=== PATIENT | female | born 1975 | race African-American/Black ===

== ENCOUNTER 2016-08-27 16:53 | Emergency (ER) | payer OTHER ==
[~2016-08-27] VITALS: Ht 152.4 cm; Wt 72.1 kg
[~2016-08-27 16:53] MED LIST: TRAM-29 PO
[2016-08-27 18:13] VITALS: BP 162/109
[2016-08-27 19:04] LABS: BILIRUBIN,URINE NEGATIVE (NEG); GLUCOSE,URINE NEGATIVE (NEG); NITRITE,URINE NEGATIVE (NEG); PH,URINE 6.5; PROTEIN,URINE NEGATIVE (NEG-TRACE); UROBILINOGEN,URINE 0.2 mg/dL (0.2 mg/dL)
[2016-08-27 19:11] LABS: BACTERIA,URINE FEW /HPF (0-FEW); RBC,URINE OCC /HPF (0-2); SQUAMOUS EPITHELIAL CELL,UR FEW /LPF; WBC,URINE OCC /HPF (0-4)
[2016-08-27 19:25] LABS: OBC FLU VALID
--- NOTE | 2016-08-27 19:59 | PHYS DOC ---
Past Medical History Past Medical History: No Pertinent History Past Surgical History: Other Additional Past Surgical Histo: "COSMETIC" Alcohol Use: Occasionally Drug Use: None Adult General Chief Complaint Chief Complaint: SEXUALLY TRANSMITTED DISEASE HPI HPI Patient is a 40 year old female who presents with a foul odor vaginal discharge for 3 weeks. Patient states 3 weeks ago she had unprotected sex because the condom broke. Patient would like to be tested and treated. She is also complaining of running nose and congestion for 2 days. She is concerned she could've the flu. Review of Systems Review of Systems Constitutional: Denies fever or chills [] Eyes: Denies change in visual acuity, redness, or eye pain [] HENT: Nasal congestion Respiratory: Denies cough or shortness of breath [] Cardiovascular: No additional information not addressed in HPI [] GI: Denies abdominal pain, nausea, vomiting, bloody stools or diarrhea [] : Vaginal discharge Musculoskeletal: Denies back pain or joint pain [] Integument: Denies rash or skin lesions [] Neurologic: Denies headache, focal weakness or sensory changes [] Endocrine: Denies polyuria or polydipsia [] Current Medications Current Medications Current Medications Medications (Trade) Dose Ordered Sig/Whitney Start Time Stop Time Status Last Admin Dose Admin Azithromycin (Zithromax) 1,000 mg 1X ONCE 08/27/16 20:00 08/27/16 20:01 Ceftriaxone Sodium (Rocephin Im) 250 mg 1X ONCE 08/27/16 20:00 08/27/16 20:01 Metronidazole (Flagyl) 2,000 mg 1X ONCE 08/27/16 20:00 08/27/16 20:01 Allergies Allergies Allergies Coded Allergies Type Severity Reaction Last Updated Verified No Known Drug Allergies 02/05/16 No Physical Exam Physical Exam Constitutional: Well developed, well nourished, no acute distress, non-toxic appearance. [] HENT: Normocephalic, atraumatic, bilateral external ears normal, oropharynx moist, no oral exudates, nose normal. [] Eyes: PERRLA, EOMI, conjunctiva normal, no discharge. [] Neck: Normal range of motion, no tenderness, supple, no stridor. [] Cardiovascular:Heart rate regular rhythm, no murmur [] Lungs & Thorax: Bilateral breath sounds clear to auscultation [] Abdomen: Bowel sounds normal, soft, no tenderness, no masses, no pulsatile masses. [] Pelvic exam External pelvic = normal, cervix is closed, no CMT, small amount of white vaginal discharge in the vaginal vault, no adnexal tenderness. Skin: Warm, dry, no erythema, no rash. [] Back: No tenderness, no CVA tenderness. [] Extremities: No tenderness, no cyanosis, no clubbing, ROM intact, no edema. [] Neurologic: Alert and oriented X 3, normal motor function, normal sensory function, no focal deficits noted. [] Psychologic: Affect normal, judgement normal, mood normal. [] Current Patient Data Vital Signs Vital Signs Date Time Temp Pulse Resp B/P Pulse Ox O2 Delivery O2 Flow Rate FiO2 08/27/16 18:13 98.5 100 18 97 Room Air 98.5 Lab Values Laboratory Tests Test 08/27/16 18:50 08/27/16 18:55 Urine Collection Type Unknown Urine Color Yellow Urine Clarity Clear Urine pH 6.5 Urine Specific [place] 1.015 Urine Protein Negativemg/dL (NEG-TRACE) Urine Glucose (UA) Negativemg/dL (NEG) Urine Ketones (Stick) Negativemg/dL (NEG) Urine Blood Negative (NEG) Urine Nitrite Negative (NEG) Urine Bilirubin Negative (NEG) Urine Urobilinogen Dipstick 0.2mg/dL (0.2 mg/dL) Urine Leukocyte Esterase Negative (NEG) Urine RBC Occ/HPF (0-2) Urine WBC Occ/HPF (0-4) Urine Squamous Epithelial Cells Few/LPF Urine Amorphous Sediment Present/HPF Urine Bacteria Few/HPF (0-FEW) Urine Mucus Slight/LPF POC Urine HCG, Qualitative hcg negative (Negative) Influenza Type A Antigen Positive (NEGATIVE) Influenza Type B Antigen Negative (NEGATIVE) Microbiology 08/27/16 Wet Prep - Final, Complete EKG EKG [] Radiology/Procedures Radiology/Procedures [] Course & Med Decision Making Course & Med Decision Making Pertinent Labs and Imaging studies reviewed. (See chart for details) Patient is in the ED with vaginal discharge and is concerned about STDs. Wet prep positive for BV. She was discharged with Flagyl, she was treated prophylaxis for STD with Rocephin and azithromycin and Flagyl. She was also concerned about the flu. She has had upper respiratory symptoms for 2 days. She tested positive for flu a. She has been sick for 2 days, discharged with Tamiflu. Urine analysis is negative for infection. Patient was indicated on safe sex practices especially the need to use protection. Follow-up with her own doctor in one week. Reinaldo Disclaimer Reinaldo Disclaimer This electronic medical record was generated, in whole or in part, using a voice recognition dictation system. Departure Departure Impression: Primary Impression: Concern about STD in female without diagnosis Additional Impressions: Bacterial vaginosis Influenza Disposition: HOME, SELF-CARE Condition: STABLE Referrals: PARISH VELEZ MD (PCP) Follow-up with your own doctor in one week Patient Instructions: Bacterial Vaginosis, Upper Respiratory Infection, Adult Additional Instructions: You tested positive for influenza A, this is a viral illness. Take Tamiflu as prescribed. Take Tylenol every 4 hours and Motrin every 6 hours, push fluids and maintain good hand hygiene. You also tested positive for bacterial vaginosis which could be the source of your vaginal discharge. We sent you home with Flagyl. Ensure you complete it. You also were treated prophylaxis for STDs. Contact all your partners let them know you treated for STDs and ask them to seek treatment too. Continue using protection all the time. Scripts Oseltamivir Phosphate (Tamiflu)75 Mg Capsule1 Cap PO BID #10 CAP Prov:DEVAN DUNCAN APRN 08/27/16 Metronidazole (Flagyl)500 Mg Tablet1 Tab PO BID #10 TAB Prov:DEVAN DUNCAN APRN 08/27/16 Problem Qualifiers DEVAN DUNCAN APRN Aug 27, 2016 19:59
[2016-08-27] MEDS ORDERED: AZITHROMYCIN 250 MG TABLET PO ONE (20:00)
[2016-08-27] MEDS ORDERED: CEFTRIAXONE IM 250 MG VIAL. IM ONE (20:00)
[2016-08-27] MEDS ORDERED: METRONIDAZOLE 500 MG TABLET. PO ONE (20:00)
[2016-08-27] MEDS ORDERED: METR500T PO (20:01)
[2016-08-27] MEDS ORDERED: OSEL75CA PO (20:01)
--- NOTE | 2016-08-28 07:18 | VNOTE ---
CALL BACK NOTE CALL BACK Microbiology 08/27/16 Wet Prep - Final, Complete Patients vaginal cultures positive for BV patient was treated with Flagyl at discharge by the provider. No change needed to the treatment regimen. SONAL GOLDMAN NP Aug 28, 2016 07:18
[2016-08-28 08:27] LABS: NEGATIVE OBC STREP NEG; POSITIVE OBC STREP POS
== END 2016-08-27 20:46 | disposition home or self-care (01) ==
LOC: ER 17:01
DX: N76.0 Acute vaginitis (principal); B96.89 Other specified bacterial agents as the cause of diseases classified elsewhere; J11.1 Influenza due to unidentified influenza virus with other respiratory manifestations; Z11.3 Encounter for screening for infections with a predominantly sexual mode of transmission
CPT/HCPCS: 36415; 81001; 81025; 87070; 87491; 87591; 87804; 87880; 96372; 99284; J0696; Q0111; Q0144

== ENCOUNTER 2016-10-15 22:08 | Emergency (ER) | payer OTHER ==
[~2016-10-15 22:08] MED LIST changes: +METR500T PO; +OSEL75CA PO
[2016-10-15 22:22] VITALS: BP 170/119
[2016-10-15] MEDS ORDERED: ONDA4TAB10 SL (23:00)
[2016-10-15] MEDS ORDERED: ACET325T9 PO (23:00)
--- NOTE | 2016-10-15 23:01 | PHYS DOC ---
Past Medical History Past Medical History: No Pertinent History Past Surgical History: Other Additional Past Surgical Histo: "COSMETIC" Alcohol Use: Occasionally Drug Use: None Adult General Chief Complaint Chief Complaint: FLU SYMPTOM HPI HPI 41-year-old female presenting to the emergency department today with headache fever cough rhinorrhea sore throat and muscle aches over the past 3 weeks. Onset 3 weeks. Location generalized. Duration intermittent. No alleviating factors present. She also complains of right ear pain. Review of systems is negative for chest pain shortness of breath nausea vomiting. She does report when she coughs sometimes she has a gagging sensation. Otherwise she denies shortness of breath or oliguria. All other review of systems is negative unless otherwise noted in history of present illness. Review of Systems Review of Systems SEE ABOVE. Allergies Allergies Allergies Coded Allergies Type Severity Reaction Last Updated Verified No Known Drug Allergies 02/05/16 No Physical Exam Physical Exam Constitutional: Well developed, well nourished, no acute distress, non-toxic appearance. HENT: Normocephalic, atraumatic, bilateral external ears normal, oropharynx moist, no oral exudates, nose normal. [] The patient's right and left tympanic membrane are normal without any erythema. Normal light reflex present. No evidence of otitis externa. Eyes: PERRLA, EOMI, conjunctiva normal, no discharge. Neck: Normal range of motion, no tenderness, supple, no stridor. [] Cardiovascular:Heart rate regular rhythm, no murmur Lungs & Thorax: Bilateral breath sounds clear to auscultation [] Abdomen: Bowel sounds normal, soft, no tenderness, no masses, no pulsatile masses. [] Skin: Warm, dry, no erythema, no rash. Back: No tenderness, no CVA tenderness. Extremities: No tenderness, no cyanosis, no clubbing, ROM intact, no edema. [] Neurologic: Alert and oriented X 3, normal motor function, normal sensory function, no focal deficits noted. [] Psychologic: Affect normal, judgement normal, mood normal. [] Current Patient Data Vital Signs Vital Signs Date Time Temp Pulse Resp B/P Pulse Ox O2 Delivery O2 Flow Rate FiO2 10/15/16 22:22 97.9 86 20 100 Room Air 97.9 EKG EKG [] Radiology/Procedures Radiology/Procedures [] Course & Med Decision Making Course & Med Decision Making Pertinent Labs and Imaging studies reviewed. (See chart for details) [] 41-year-old female presenting with signs and symptoms suggestive of influenza virus. She also complained of right ear pain however her here exam was completely unremarkable. She had hypertension in the emergency department for which I recommended she follow up with her doctor. No evidence of end organ damage. No crackles on pulmonary auscultation. No oliguria. Dragon Disclaimer Dragon Disclaimer This electronic medical record was generated, in whole or in part, using a voice recognition dictation system. Departure Departure Impression: Primary Impression: Influenza Disposition: HOME, SELF-CARE Condition: STABLE Referrals: PARISH VELEZ MD (PCP) Patient Instructions: Cough, Adult, Hypertension Additional Instructions: Thank you for allowing us to participate in your care today. Followup with your primary care physician in 3 days if your symptoms do not improve. If you do not have a primary care provider you can ask for a list of our primary care providers. Return to the emergency department you have any new or concerning findings. This should be evaluated by the primary care physician and any necessary consulting services for continued management within a few days after discharge. Return to emergency room if you have any new or concerning symptoms including but not limited to fever, chills, nausea, vomiting, intractable pain, any new rashes, chest pain, shortness of air, uncontrolled bleeding, difficulty breathing, and/or vision loss. Scripts Ondansetron (Zofran Odt)4 Mg Tab.rapdis1 Tab SL PRN Q8HRS PRN NAUSEA #4 TAB Prov:TAMERA ALVARADO MD 10/15/16 Acetaminophen (Tylenol)325 Mg [id number] Mg PO PRN Q8HRS PRN PAIN #20 Prov:TAMERA ALVARADO MD 10/15/16 TAEMRA ALVARADO MD Oct 15, 2016 23:01
== END 2016-10-15 23:07 | disposition home or self-care (01) ==
LOC: ER 22:08
DX: J11.1 Influenza due to unidentified influenza virus with other respiratory manifestations (principal); H92.01 Otalgia, right ear; M79.1 Myalgia
CPT/HCPCS: 99283

== ENCOUNTER → 2016-10-16 | Outpatient (CLI) | payer OTHER ==
[2016-10-15 22:22] VITALS: BP 170/119
[~2016-10-16] MED LIST changes: +ACET325T9 PO; +ONDA4TAB10 SL
--- NOTE | 2016-10-16 13:20 | RAD ---
EXAM: Abdomen sonogram. HISTORY: Right upper quadrant pain. TECHNIQUE: Sonographic imaging of the abdomen was performed. COMPARISON: None. FINDINGS: The liver is normal in size. There is hepatic steatosis. No focal hepatic lesion is seen. The gallbladder neck is prominent in caliber. There is a positive sonographic Jain's sign. The right kidney, pancreas and inferior vena cava are unremarkable. The common bile duct is normal in caliber. IMPRESSION: 1. Hepatic steatosis. 2. Prominent gallbladder neck caliber. There is no gallbladder distention, gallbladder wall thickening or pericholecystic fluid suggest cholecystitis were correspond with a positive sonographic Jain's sign.
== END | disposition home or self-care (01) ==
LOC: US 11:10
PROVIDERS: ATTEND Nurse Practitioner Family
DX: R10.11 Right upper quadrant pain (principal); K21.9 Gastro-esophageal reflux disease without esophagitis; K76.0 Fatty (change of) liver, not elsewhere classified
CPT/HCPCS: 76705

== ENCOUNTER 2016-11-26 12:22 | Emergency (ER) | payer OTHER ==
[~2016-11-26] VITALS: Ht 154.9 cm; Wt 700.8 kg
[2016-11-26 13:05] VITALS: BP 147/109
[2016-11-26] MEDS ORDERED: HYDR25TA PO (13:40)
[2016-11-26] MEDS ORDERED: FAMO-63 PO (13:40)
[2016-11-26] MEDS ORDERED: ACYC800T PO (13:40)
[2016-11-26] MEDS ORDERED: PRED50TA PO (13:40)
--- NOTE | 2016-11-26 13:41 | PHYS DOC ---
Past Medical History Past Medical History: Hypertension Past Surgical History: Other Additional Past Surgical Histo: "COSMETIC" Alcohol Use: Occasionally Drug Use: None Adult General Chief Complaint Chief Complaint: INSECT BITE HPI HPI Patient is a 41 year old female who presents today with a pruritic rash that began a couple days ago while vacationing in [facility]. Review of Systems Review of Systems Constitutional: Denies fever or chills [] Eyes: Denies change in visual acuity, redness, or eye pain [] HENT: Denies nasal congestion or sore throat [] Musculoskeletal: Denies back pain or joint pain [] Integument: rash Neurologic: Denies headache, focal weakness or sensory changes [] Endocrine: Denies polyuria or polydipsia [] Allergies Allergies Allergies Coded Allergies Type Severity Reaction Last Updated Verified No Known Drug Allergies 02/05/16 No Physical Exam Physical Exam Constitutional: Well developed, well nourished, no acute distress, non-toxic appearance. [] HENT: Normocephalic, atraumatic, bilateral external ears normal, oropharynx moist, no oral exudates, nose normal. [] Eyes: PERRLA, EOMI, conjunctiva normal, no discharge. [] Skin: Patient has scattered areas of blisters on her hands. She has some erythematous papular rash on her back. Back: No tenderness, no CVA tenderness. [] Extremities: No tenderness, no cyanosis, no clubbing, ROM intact, no edema. [] Neurologic: Alert and oriented X 3, normal motor function, normal sensory function, no focal deficits noted. [] Psychologic: Affect normal, judgement normal, mood normal. [] Current Patient Data Vital Signs Vital Signs Date Time Temp Pulse Resp B/P (MAP) Pulse Ox O2 Delivery O2 Flow Rate FiO2 11/26/16 13:05 97.8 91 18 98 Room Air 97.8 EKG EKG [] Radiology/Procedures Radiology/Procedures [] Course & Med Decision Making Course & Med Decision Making Pertinent Labs and Imaging studies reviewed. (See chart for details) Patient has rashes suspicious of contact dermatitis as well as shingles. We put on acyclovir. We also put her on prednisone, pepcid, Atarax and triamcinolone cream. Provided a blanchard grinder operator for follow-up in 2 weeks. Dragon Disclaimer Dragon Disclaimer This electronic medical record was generated, in whole or in part, using a voice recognition dictation system. Departure Departure Impression: Primary Impression: Contact dermatitis Additional Impression: Shingles Disposition: 01 HOME, SELF-CARE Condition: STABLE Referrals: PARISH VELEZ MD (PCP) SOL URENA MD Follow-up with the provided blanchard grinder operator in 2 weeks if rash present Patient Instructions: Contact Dermatitis, [id number], Shingles Additional Instructions: You have a rash throughout her body. Some of the rashes are blister suspicious of a viral rash called shingles while other are contact dermatitis which comes from exposure to something your skin reacted to. We put you on several medications to help with the symptoms. We provided you a blanchard grinder operator to follow -up with in the next14 days if symptoms persist. Scripts Hydroxyzine Hcl (HYDROXYZINE HCL) 25 Mg Tablet 1 TAB PO TID Y for RASH, #30 TAB 1 Refill Prov: DEVAN DUNCAN APRN 11/26/16 Famotidine (PEPCID) 20 Mg Tablet 20 MG PO DAILY, #7 TAB Prov: DEVAN DUNCAN APRN 11/26/16 Prednisone (PREDNISONE) 50 Mg Tablet 1 TAB PO DAILY, #5 TAB Prov: DEVAN DUNCAN APRN 17 Acyclovir (ACYCLOVIR) 800 Mg Tablet 1 TAB PO 5XDAY, #50 TAB Prov: DEVAN DUNCAN APRN 11/26/16 Problem Qualifiers Primary Impression: Contact dermatitis Contact dermatitis type: unspecified Contact dermatitis trigger: unspecified trigger Qualified Codes: L25.9 - Unspecified contact dermatitis, unspecified cause Additional Impression: Shingles Herpes zoster complications: without complications Qualified Codes: B02.9 - Zoster without complications DEVAN DUNCAN APRN November 26, 2016 13:41
== END 2016-11-26 13:50 | disposition home or self-care (01) ==
LOC: ER 12:22
DX: L25.9 Unspecified contact dermatitis, unspecified cause (principal); B02.9 Zoster without complications; I10 Essential (primary) hypertension
CPT/HCPCS: 99283

== ENCOUNTER 2017-03-23 12:04 | Emergency (ER) | payer OTHER ==
[~2017-03-23] VITALS: Ht 154.9 cm; Wt 71.2 kg
[~2017-03-23 12:04] MED LIST changes: +ACYC800T PO; +FAMO-63 PO; +HYDR25TA PO; +PRED50TA PO; -TRAM-29 PO; +TRAM-48 PO
[2017-03-23 12:52] VITALS: BP 152/98
[2017-03-23] MEDS ORDERED: TRIA15CR3 TP (13:09)
[2017-03-23] MEDS ORDERED: CETI10TA22 PO (13:09)
[2017-03-23] MEDS ORDERED: PRED50TA PO (13:09)
--- NOTE | 2017-03-23 13:10 | PHYS DOC ---
Past Medical History Past Medical History: Hypertension Past Surgical History: Other Additional Past Surgical Histo: "COSMETIC" Alcohol Use: Occasionally Drug Use: None Adult General Chief Complaint Chief Complaint: INSECT BITE HPI HPI Patient is a 41 year old female with history of hypertension who presents with multiple insect bites that she noted yesterday. Patient does not know what bit her. Review of Systems Review of Systems Constitutional: Denies fever or chills [] Eyes: Denies change in visual acuity, redness, or eye pain [] HENT: Denies nasal congestion or sore throat [] Respiratory: Denies cough or shortness of breath [] Cardiovascular: No additional information not addressed in HPI [] GI: Denies abdominal pain, nausea, vomiting, bloody stools or diarrhea [] : Denies dysuria or hematuria [] Musculoskeletal: Denies back pain or joint pain [] Integument: insect bites Neurologic: Denies headache, focal weakness or sensory changes [] ia or polydipsia [] Current Medications Current Medications Current Medications Medications (Trade) Dose Ordered Sig/Whitney Start Time Stop Time Status Last Admin Dose Admin Diphtheria/ Tetanus/Acell Pertussis (Boostrix) 0.5 ml ONCE ONCE 03/23/17 13:15 03/23/17 13:16 UNV Allergies Allergies Allergies Coded Allergies Type Severity Reaction Last Updated Verified No Known Drug Allergies 02/05/16 No Physical Exam Physical Exam Constitutional: Well developed, well nourished, no acute distress, non-toxic appearance. [] HENT: Normocephalic, atraumatic, bilateral external ears normal, oropharynx moist, no oral exudates, nose normal. [] Eyes: PERRLA, EOMI, conjunctiva normal, no discharge. [] Neck: Normal range of motion, no tenderness, supple, no stridor. [] Cardiovascular:Heart rate regular rhythm, no murmur [] Lungs & Thorax: Bilateral breath sounds clear to auscultation [] Abdomen: Bowel sounds normal, soft, no tenderness, no masses, no pulsatile masses. [] Skin: Patient has multiple sites of erythematous blisters suspicious of mosquito bites. They include on bilateral forearms, bilateral knees, right foot , left thigh. Back: No tenderness, no CVA tenderness. [] Extremities: No tenderness, no cyanosis, no clubbing, ROM intact, no edema. [] Neurologic: Alert and oriented X 3, normal motor function, normal sensory function, no focal deficits noted. [] Psychologic: Affect normal, judgement normal, mood normal. [] Current Patient Data Vital Signs Vital Signs Date Time Temp Pulse Resp B/P (MAP) Pulse Ox O2 Delivery O2 Flow Rate FiO2 03/23/17 12:52 98.2 91 18 100 Room Air 98.2 EKG EKG [] Radiology/Procedures Radiology/Procedures [] Course & Med Decision Making Course & Med Decision Making Pertinent Labs and Imaging studies reviewed. (See chart for details) Patient has multiple insect bites suspicious of mosquito bites. She was given tetanus in the ED. She was discharged with triamcinolone cream Benadryl and prednisone. Follow-up with her doctor in 1-2 weeks. Dragon Disclaimer Dragon Disclaimer This electronic medical record was generated, in whole or in part, using a voice recognition dictation system. Departure Departure Impression: Primary Impression: Insect bite Disposition: HOME, SELF-CARE Condition: STABLE Referrals: PARISH VELEZ MD (PCP) please follow up with your doctor in 2 weeks Patient Instructions: Insect Bite, [id number] Additional Instructions: You were seen with insect bites suspicious of mosquitoes bites. They do not look infected. Use the prescribed medicines as ordered you can also apply Neosporin to the areas twice a day. Follow-up with your doctor in 1-2 weeks. Keep the area very clean. Scripts Cetirizine Hcl (ZYRTEC) 10 Mg Tablet 1 TAB PO DAILY, #30 TAB 2 Refills Prov: DEVAN DUNCAN APRN 03/23/17 Prednisone (PREDNISONE) 50 Mg Tablet 1 TAB PO DAILY, #5 TAB Prov: DEVAN DUNCAN APRN 03/23/17 Triamcinolone Acetonide (TRIAMCINOLONE ACETONIDE 0.1% CREAM) 15 Gm Cream..g. 1 CELESTE TP BID, #1 TUBE Prov: DEVAN DUNCAN APRN 03/23/17 Problem Qualifiers Primary Impression: Insect bite Encounter type: initial encounter Qualified Codes: W57.XXXA - Bitten or stung by nonvenomous insect and other nonvenomous arthropods, initial encounter DEVAN DUNCAN APRN Mar 23, 2017 13:09
[2017-03-23] MEDS ORDERED: DIPHTH,PERTUSS(ACELL),TET TOX 0.5 ML DISP.SYRIN. VAX IM ONE (13:15)
== END 2017-03-23 13:30 | disposition home or self-care (01) ==
LOC: ER 12:04
DX: S50.862A Insect bite (nonvenomous) of left forearm, initial encounter (principal); S50.861A Insect bite (nonvenomous) of right forearm, initial encounter; S90.861A Insect bite (nonvenomous), right foot, initial encounter; S80.262A Insect bite (nonvenomous), left knee, initial encounter; S80.261A Insect bite (nonvenomous), right knee, initial encounter; S70.362A Insect bite (nonvenomous), left thigh, initial encounter; I10 Essential (primary) hypertension; W57.XXXA Bitten or stung by nonvenomous insect and other nonvenomous arthropods, initial encounter; Y93.89 Activity, other specified; Y99.8 Other external cause status; Y92.89 Other specified places as the place of occurrence of the external cause
CPT/HCPCS: 90471; 90715; 99283-25

== ENCOUNTER 2017-08-30 08:11 | Emergency (ER) | payer SELFPAY, OTHER ==
[2017-08-30 08:33] LABS: URINE HCG POC HCG NEGATIVE (Negative)
[2017-08-30] MEDS: ONDANSETRON PF 4 MG/2 ML VIAL. IV ×2 (08:42)
[2017-08-30] MEDS: IV NORMAL SALINE 1000ML BAG 1,000 ML IV ×2 (08:42)
[2017-08-30 08:45] LABS: BILIRUBIN,URINE NEGATIVE (NEG); CLARITY,URINE CLOUDY; COLOR,URINE YELLOW; GLUCOSE,URINE NEGATIVE (NEG); NITRITE,URINE NEGATIVE (NEG); PROTEIN,URINE 30 mg/dL (NEG-TRACE); UROBILINOGEN,URINE 0.2 mg/dL (0.2 mg/dL)
[2017-08-30 08:48] LABS: ADD MAN DIFF? NO
[2017-08-30 08:56] LABS: BACTERIA,URINE FEW /HPF (0-FEW); BASO % 1 % (0-3); EOS # 0.1 x10^3/uL (0.0-0.7); EOS % 3 % (0-3); HEMATOCRIT 40.7 % (36.0-47.0); HEMOGLOBIN 13.1 g/dL (12.0-15.5); LYMPH # 1.3 x10^3/uL (1.0-4.8); LYMPH % 32 % (24-48); MEAN CORPUSCULAR HEMOGLOBIN 25 pg (25-35); MEAN CORPUSCULAR HGB CONC 32 g/dL (31-37); MEAN CORPUSCULAR VOLUME 76 fL (79-100); MONO # 0.4 x10^3/uL (0.0-1.1); MONO % 10 % (0-9); NEUT # 2.2 x10^3uL (1.8-7.7); NEUT % 54 % (31-73); PLATELET COUNT 329 x10^3/uL (140-400); RBC,URINE OCC /HPF (0-2); RED BLOOD COUNT 5.36 x10^6/uL (3.50-5.40); RED CELL DISTRIBUTION WIDTH 15.2 % (11.5-14.5); SQUAMOUS EPITHELIAL CELL,UR MOD /LPF; WBC,URINE OCC /HPF (0-4); WHITE BLOOD COUNT 4.1 x10^3/uL (4.0-11.0)
[2017-08-30 08:58] LABS: ANION GAP 13 (6-14); BLOOD UREA NITROGEN 9 mg/dL (7-20); BUN/CREATININE RATIO 10 (6-20); CALCIUM 9.5 mg/dL (8.5-10.1); CARBON DIOXIDE 25 mmol/L (21-32); CHLORIDE 101 mmol/L (98-107); CREATININE 0.9 mg/dL (0.6-1.0); GFR 84.3; GLUCOSE 106 mg/dL (70-99); POTASSIUM 3.8 mmol/L (3.5-5.1); SODIUM 139 mmol/L (136-145)
[2017-08-30 09:04] LABS: ALBUMIN 3.6 g/dL (3.4-5.0); ALBUMIN/GLOBULIN RATIO 0.8 (1.0-1.7); ALK PHOS 80 U/L (46-116); ALT (SGPT) 22 U/L (14-59); AST (SGOT) 31 U/L (15-37); TOTAL BILIRUBIN 0.2 mg/dL (0.2-1.0)
[2017-08-30 09:11] LABS: INFLUENZA A PATIENT NEGATIVE (NEGATIVE); INFLUENZA B PATIENT NEGATIVE (NEGATIVE); OBC FLU VALID
[2017-08-30] MEDS: cloNIDine HCL 0.1 MG TABLET PO ×2 (11:11)
== END 2017-08-30 12:40 | disposition home or self-care (01) ==
LOC: ER 08:11
DX: A08.4 Viral intestinal infection, unspecified (principal); I10 Essential (primary) hypertension; K21.9 Gastro-esophageal reflux disease without esophagitis; Z88.0 Allergy status to penicillin
CPT/HCPCS: 36415; 80053; 81001; 81025; 85025; 87086; 87804; 87804-59; 96361; 96374; 99284-25; J2405; J7030

== ENCOUNTER → 2018-02-15 | Outpatient (CLI) | payer OTHER | END | disposition home or self-care (01) | LOC: US 08:24 | DX: N88.8 Other specified noninflammatory disorders of cervix uteri (principal); I10 Essential (primary) hypertension; K21.9 Gastro-esophageal reflux disease without esophagitis; R92.8 Other abnormal and inconclusive findings on diagnostic imaging of breast; Z87.891 Personal history of nicotine dependence | CPT/HCPCS: 76641; 76830; 76856; 77066 ==

== ENCOUNTER 2018-05-11 18:41 | Emergency (ER) | payer OTHER ==
[~2018-05-11] VITALS: Ht 152.4 cm; Wt 77.1 kg
[~2018-05-11 18:41] MED LIST changes: +CETI10TA22 PO; +TRIA15CR3 TP
[2018-05-11 19:26] VITALS: BP 134/83
--- NOTE | 2018-05-11 19:56 | PHYS DOC ---
Past Medical History Past Medical History: No Pertinent History Past Surgical History: Other Additional Past Surgical Histo: BREAST AUGMENTATION Alcohol Use: Occasionally Drug Use: None Adult General Chief Complaint Chief Complaint: ABSCESS HPI HPI Patient is a 42 year old Female who presents with 2 days of a right groin abscess that opened and drained today with foul smell purulent drainage. Patient states she's been putting Neosporin on it. Patient states she gets up and walks it hurts at a 10 out of 10. Patient states she has no known drug allergies and has not been running a fever. Patient has a history of hypertension. Review of Systems Review of Systems Constitutional: Denies fever or chills [] Eyes: Denies change in visual acuity, redness, or eye pain [] HENT: Denies nasal congestion or sore throat [] Respiratory: Denies cough or shortness of breath [] Cardiovascular: No additional information not addressed in HPI [] GI: Denies abdominal pain, nausea, vomiting, bloody stools or diarrhea [] : Denies dysuria or hematuria [] Musculoskeletal: Denies back pain or joint pain [] Integument: Right groin abscess. Denies rash or skin lesions [] Neurologic: Denies headache, focal weakness or sensory changes [] Endocrine: Denies polyuria or polydipsia [] All other systems were reviewed and found to be within normal limits, except as documented in this note. Allergies Allergies Allergies Coded Allergies Type Severity Reaction Last Updated Verified No Known Medication Allergies Allergy Unknown 08/30/17 Yes Penicillins Adverse Reaction Unknown Nausea and Vomiting 08/30/17 Yes Physical Exam Physical Exam Constitutional: Well developed, well nourished, no acute distress, non-toxic appearance. [] HENT: Normocephalic, atraumatic, bilateral external ears normal, oropharynx moist, no oral exudates, nose normal. [] Eyes: PERRLA, EOMI, conjunctiva normal, no discharge. [] Neck: Normal range of motion, no tenderness, supple, no stridor. [] Cardiovascular:Heart rate regular rhythm, no murmur [] Lungs & Thorax: Bilateral breath sounds clear to auscultation [] Abdomen: Bowel sounds normal, soft, no tenderness, no masses, no pulsatile masses. [] Skin: Warm, dry, right groin erythema, open and draining, no rash. [] Back: No tenderness, no CVA tenderness. [] Extremities: No tenderness, no cyanosis, no clubbing, ROM intact, no edema. [] Neurologic: Alert and oriented X 3, normal motor function, normal sensory function, no focal deficits noted. [] Psychologic: Affect normal, judgement normal, mood normal. [] Current Patient Data Vital Signs Vital Signs Date Time Temp Pulse Resp B/P (MAP) Pulse Ox O2 Delivery O2 Flow Rate FiO2 05/11/18 19:26 97.9 96 16 134/83 (100) 100 Room Air 97.9 EKG EKG [] Radiology/Procedures Radiology/Procedures [] Course & Med Decision Making Course & Med Decision Making Patient is a 42 year old Female who presents with 2 days of a right groin abscess that opened and drained today with foul smell purulent drainage. Patient states she's been putting Neosporin on it. Patient states she gets up and walks it hurts at a 10 out of 10. Patient states she has no known drug allergies and has not been running a fever. Patient has a history of hypertension. Patient has a small opened abscess with redness and swelling around the open area that is draining purulent fluid that is foul-smelling. I was able to drain more from it without having to open the wound more. Patient will be put on Bactrim antibiotic and should follow-up with her primary care provider within 48 hours or back to the ED within 48 hours for a wound check. Patient is not currently run a fever and her vital signs are normal. She is alert and oriented. Skin is pink warm and dry. Patient prescription for [place] pain medication and also. [] Dragon Disclaimer Dragon Disclaimer This electronic medical record was generated, in whole or in part, using a voice recognition dictation system. Departure Departure Impression: Primary Impression: Abscess Disposition: 01 HOME, SELF-CARE Condition: STABLE Referrals: PARISH VELEZ MD (PCP) Patient Instructions: Abscess Additional Instructions: FOLLOW UP WITH YOUR PRIMARY CARE PROVIDER WITHIN 48 HOURS OR THE ED FOR A WOUND CHECK. Scripts Hydrocodone/Apap 5-325 (NORCO 5-325 TABLET) 1 Each Tablet 1 TAB PO PRN Q6HRS PRN for PAIN, #8 TAB 0 Refills Prov: SONAL CROCKER SACK SEWER MACHINE 05/11/18 Sulfamethoxazole/Trimethoprim (BACTRIM DS TABLET) 1 Each Tablet 1 TAB PO BID, #14 TAB Prov: SONAL CROCKER APRN 05/11/18 SONAL CROCKER APRN May 11, 2018 19:56
[2018-05-11] MEDS ORDERED: SULF1TAB24 PO (20:04)
[2018-05-11] MEDS ORDERED: HYDR-971 PO (20:04)
[2018-05-11] MEDS ORDERED: MUPIROCIN 2 % TOPICAL CREAM 15GM TUBE. TP SCH (21:00)
== END 2018-05-11 20:29 | disposition home or self-care (01) ==
LOC: ER 18:41
DX: L02.214 Cutaneous abscess of groin (principal); I10 Essential (primary) hypertension; Z88.0 Allergy status to penicillin
CPT/HCPCS: 99283

== ENCOUNTER 2018-06-20 10:07 | Emergency (ER) | payer OTHER ==
[~2018-06-20] VITALS: Ht 154.9 cm; Wt 74.4 kg
[~2018-06-20 10:07] MED LIST changes: +HYDR-3164 PO; +SULF1TAB24 PO
[2018-06-20 10:53] VITALS: BP 154/94
[2018-06-20] MEDS: FLUCONAZOLE 100 MG TABLET. PO ONE (11:30)
[2018-06-20] MEDS: DEXAMETHASONE 4 MG TABLET PO ONE (11:34)
[2018-06-20 11:36] LABS: BILIRUBIN,URINE NEGATIVE (NEG); CLARITY,URINE CLEAR; COLOR,URINE AMBER; NITRITE,URINE NEGATIVE (NEG); PROTEIN,URINE 30 mg/dL (NEG-TRACE); UROBILINOGEN,URINE 0.2 mg/dL (0.2 mg/dL)
--- NOTE | 2018-06-20 11:42 | PHYS DOC ---
Past Medical History Past Medical History: No Pertinent History Past Surgical History: No Surgical History Additional Past Surgical Histo: BREAST AUGMENTATION Alcohol Use: Occasionally Drug Use: None Adult General Chief Complaint Chief Complaint: VAGINAL PROBLEM HPI HPI Patient is a 42 year old female who presents with stated was treated 3 weeks ago for an ingrown hair that was infected in the ED biotics. Patients states that since the antibiotics she had been having vaginal itching inside the vagina and outside the vagina and her groins bilaterally. Patient states she's been using Monistat which she used yesterday on the outside and the inside of the vagina. She denies any vaginal discharge or possible sexually transmitted diseases. She states that she's had some slight low abdominal cramping that comes and goes but it has not bothered her. She denies dysuria, nausea or vomiting or diarrhea. Review of Systems Review of Systems Constitutional: Denies fever or chills [] Eyes: Denies change in visual acuity, redness, or eye pain [] HENT: Denies nasal congestion or sore throat [] Respiratory: Denies cough or shortness of breath [] Cardiovascular: No additional information not addressed in HPI [] GI: Denies abdominal pain, nausea, vomiting, bloody stools or diarrhea [] : Vaginal itching. Denies dysuria or hematuria [] Musculoskeletal: Denies back pain or joint pain [] Integument: Denies rash or skin lesions [] Neurologic: Denies headache, focal weakness or sensory changes [] Endocrine: Denies polyuria or polydipsia [] All other systems were reviewed and found to be within normal limits, except as documented in this note. Current Medications Current Medications Current Medications Medications (Trade) Dose Ordered Sig/Whitney Start Time Stop Time Status Last Admin Dose Admin Dexamethasone (Decadron) 8 mg 1X ONCE 06/20/18 11:30 06/20/18 11:31 DC 06/20/18 11:34 8 MG Fluconazole (Diflucan) 100 mg 1X ONCE 06/20/18 11:30 06/20/18 11:31 DC 06/20/18 11:30 100 MG Allergies Allergies Allergies Coded Allergies Type Severity Reaction Last Updated Verified No Known Medication Allergies Allergy Unknown 08/30/17 Yes Penicillins Adverse Reaction Unknown Nausea and Vomiting 08/30/17 Yes Physical Exam Physical Exam Constitutional: Well developed, well nourished, no acute distress, non-toxic appearance. [] HENT: Normocephalic, atraumatic, bilateral external ears normal, oropharynx moist, no oral exudates, nose normal. [] Eyes: PERRLA, EOMI, conjunctiva normal, no discharge. [] Neck: Normal range of motion, no tenderness, supple, no stridor. [] Cardiovascular:Heart rate regular rhythm, no murmur [] Lungs & Thorax: Bilateral breath sounds clear to auscultation [] Abdomen: White vaginal discharge that can be either the Monistat or abnormal discharge. Bowel sounds normal, soft, no tenderness, no masses, no pulsatile masses. [] Skin: Warm, dry, no erythema, no rash. [] Back: No tenderness, no CVA tenderness. [] Extremities: No tenderness, no cyanosis, no clubbing, ROM intact, no edema. [] Neurologic: Alert and oriented X 3, normal motor function, normal sensory function, no focal deficits noted. [] Psychologic: Affect normal, judgement normal, mood normal. [] Current Patient Data Vital Signs Vital Signs Date Time Temp Pulse Resp B/P (MAP) Pulse Ox O2 Delivery O2 Flow Rate FiO2 06/20/18 10:53 98.1 106 20 154/94 (114) 100 Room Air 98.1 Lab Values Laboratory Tests Test 06/20/18 11:11 06/20/18 11:20 Urine Collection Type Unknown Urine Color Tanya Urine Clarity Clear Urine pH 6.0 Urine Specific [place] >=1.030 Urine Protein 30 mg/dL (NEG-TRACE) Urine Glucose (UA) Negative mg/dL (NEG) Urine Ketones (Stick) Trace mg/dL (NEG) Urine Blood Negative (NEG) Urine Nitrite Negative (NEG) Urine Bilirubin Negative (NEG) Urine Urobilinogen Dipstick 0.2 mg/dL (0.2 mg/dL) Urine Leukocyte Esterase Negative (NEG) Urine RBC Occ /HPF (0-2) Urine WBC 1-4 /HPF (0-4) Urine Squamous Epithelial Cells Few /LPF Urine Bacteria Few /HPF (0-FEW) Urine Mucus Slight /LPF POC Urine HCG, Qualitative Hcg negative (Negative) Microbiology 06/20/18 Wet Prep - Final, Complete EKG EKG [] Radiology/Procedures Radiology/Procedures [] Course & Med Decision Making Course & Med Decision Making Patient is a 42 year old female who presents with stated was treated 3 weeks ago for an ingrown hair that was infected in the ED biotics. Patients states that since the antibiotics she had been having vaginal itching inside the vagina and outside the vagina and her groins bilaterally. Patient states she's been using Monistat which she used yesterday on the outside and the inside of the vagina. She denies any vaginal discharge or possible sexually transmitted diseases. She states that she's had some slight low abdominal cramping that comes and goes but it has not bothered her. She denies dysuria, nausea or vomiting or diarrhea. Abdomen is soft and nontender. Pelvic exam is done and cultures are sent for STDs. Patient states she does not want to be treated for any history transmitted diseases at this time. Alert and oriented. Wet mount is negative, although this can be scewed due to the Monistat use. Urine is negative for infection. Skin is pink warm and dry. Afebrile. Ambulatory. She'll get a dose of Diflucan and dexamethasone in the ED. If itching continues she needs to follow up with her primary care doctor or her camera prototyping engineer. Pelvic Exam: Hand Funnel Coater present Abdomen: Nontender External Genitalia: Normal Skin Speculum: Normal vaginal mucosa, white cervical discharge Bimanual: No adnexal masses or tenderness, No CMT Dragon Disclaimer Dragon Disclaimer This electronic medical record was generated, in whole or in part, using a voice recognition dictation system. Departure Departure Impression: Primary Impression: Vaginal itching Disposition: 01 HOME, SELF-CARE Condition: STABLE Referrals: PARISH VELEZ MD (PCP) Patient Instructions: Yeast Infection of the Skin, [id number] Additional Instructions: Itching continues go to your primary care or your camera prototyping engineer for further workup. You be called in 48 hours if the chlamydia or gonorrhea cultures come back positive. SONAL CROCKER LABOR RELATIONS OFFICER Jun 20, 2018 11:42
[2018-06-20 11:56] LABS: BACTERIA,URINE FEW /HPF (0-FEW); RBC,URINE OCC /HPF (0-2); SQUAMOUS EPITHELIAL CELL,UR FEW /LPF
[2018-06-21 13:17] LABS: GC PROBE Negative (Negative)
== END 2018-06-20 12:35 | disposition home or self-care (01) ==
LOC: ER 10:07
DX: L29.8 Other pruritus (principal); R10.30 Lower abdominal pain, unspecified; N89.8 Other specified noninflammatory disorders of vagina; Z88.0 Allergy status to penicillin
CPT/HCPCS: 81001; 81025; 87491; 87591; 99283; J8540; Q0111; 36415

== ENCOUNTER 2019-06-29 10:19 | Emergency (ER) | payer MEDICAID, OTHER ==
[~2019-06-29] VITALS: Ht 152.4 cm; Wt 81.6 kg
[2019-06-29] MEDS ORDERED: LIDOCAINE 2% TOPICAL JELLY 5GM TUBE. TP ONE (11:30)
[2019-06-29] MEDS ORDERED: cloNIDine HCL 0.1 MG TABLET PO ONE (11:45)
[2019-06-29 11:46] LABS: BILIRUBIN,URINE NEGATIVE (NEG); COLOR,URINE YELLOW; NITRITE,URINE NEGATIVE (NEG); PROTEIN,URINE 30 mg/dL (NEG-TRACE); UROBILINOGEN,URINE 0.2 mg/dL (0.2 mg/dL)
[2019-06-29 11:49] VITALS: BP 175/119
--- NOTE | 2019-06-29 11:53 | RAD ---
Examination: PELVIS COMPLETE History: Pelvic pain Comparison/Correlation: 02/15/2018 pelvic ultrasound Findings: Transabdominal pelvic ultrasound exam was performed. Uterus measures 14.2 cm x 10 cm x 8.8 cm. Endometrial thickness is 0.64 cm. Multiple fibroids are present involving the myometrium with the largest measuring up to 6.4 cm diameter. Right ovary measures approximately 3.1 cm x 2.1 cm x 2 cm left ovary measures 5 cm x 5.4 cm x 3.9 cm. There is flow present bilaterally involving the ovaries. No pelvic free fluid. Adnexal follicle measuring 4.1 ureter is present with septations and may represent a corpus cyst. Impression: Fibroid uterus. Mild interval increase in size of the largest fibroid by approximately 1.5 cm? This may alternatively be due to differences in measuring technique. Complex left adnexal follicle which may be physiologic. Interval follow-up in 16-18 weeks to assess resolution. Consider. Electronically signed by: Keshav Guthrie MD (06/29/2019 11:49 AM) [facility]
[2019-06-29 12:05] LABS: U PREG PATIENT NEGATIVE (NEG)
[2019-06-29 12:07] LABS: CLARITY,URINE HAZY
[2019-06-29 12:09] LABS: SQUAMOUS EPITHELIAL CELL,UR MANY /LPF
[2019-06-29 12:10] LABS: BACTERIA,URINE FEW /HPF (0-FEW); RBC,URINE OCC /HPF (0-2)
--- NOTE | 2019-06-29 12:17 | PHYS DOC ---
Past Medical History Past Medical History: No Pertinent History Past Surgical History: No Surgical History Additional Past Surgical Histo: BREAST AUGMENTATION Alcohol Use: Occasionally Drug Use: None Adult General Chief Complaint Chief Complaint: PELVIC PAIN HPI HPI Patient is a 43 year old female with history of hypertension who presents to the ED today complaining of 9 out of 10 bilateral pelvic pain described as burning and itching to her ovaries and vagina, symptoms began 2 days ago. Patient states symptoms got worse after she used [id number] vagisil cream, patient denies any chance she is . Denies any concerns for STDs. Review of Systems Review of Systems Constitutional: Denies fever or chills [] Eyes: Denies change in visual acuity, redness, or eye pain [] HENT: Denies nasal congestion or sore throat [] Respiratory: Denies cough or shortness of breath [] Cardiovascular: No additional information not addressed in HPI [] GI: Reports pelvic pain and vaginal itching. Denies nausea, vomiting, bloody stools or diarrhea [] : Denies dysuria or hematuria [] Musculoskeletal: Denies back pain or joint pain [] Integument: Denies rash or skin lesions [] Neurologic: Denies headache, focal weakness or sensory changes [] All other systems were reviewed and found to be within normal limits, except as documented in this note. Current Medications Current Medications Current Medications Medications (Trade) Dose Ordered Sig/Whitney Start Time Stop Time Status Last Admin Dose Admin Clonidine HCl (Catapres) 0.1 mg 1X ONCE 06/29/19 11:45 06/29/19 11:46 DC 06/29/19 11:49 0.1 MG Lidocaine HCl (Xylocaine 2% Topical 5gm Tube) 1 paul 1X ONCE 06/29/19 11:30 06/29/19 11:31 DC 06/29/19 11:41 1 PAUL Allergies Allergies Allergies Coded Allergies Type Severity Reaction Last Updated Verified No Known Medication Allergies Allergy Unknown 08/30/17 Yes Penicillins Adverse Reaction Unknown Nausea and Vomiting 08/30/17 Yes Physical Exam Physical Exam Constitutional: Well developed, well nourished, no acute distress, non-toxic appearance. [] HENT: Normocephalic, atraumatic, bilateral external ears normal, oropharynx moist, no oral exudates, nose normal. [] Eyes: PERRLA, EOMI, conjunctiva normal, no discharge. [] Neck: Normal range of motion, no tenderness, supple, no stridor. [] Cardiovascular:Heart rate regular rhythm, no murmur [] Lungs & Thorax: Bilateral breath sounds clear to auscultation [] Abdomen: Bowel sounds normal, soft, no tenderness, no masses, no pulsatile masses. [] Pelvic exam External vagina appears very irritated. There is moderate amount of white cream in the vaginal vault as well as exterior vagina. Cervix is visualized, closed, no CMT, no adnexal tenderness. Skin: Warm, dry, no erythema, no rash. [] Back: No tenderness, no CVA tenderness. [] Extremities: No tenderness, no cyanosis, no clubbing, ROM intact, no edema. [] Neurologic: Alert and oriented X 3, normal motor function, normal sensory function, no focal deficits noted. [] Psychologic: Affect normal, judgement normal, mood normal. [] Current Patient Data Vital Signs Vital Signs Date Time Temp Pulse Resp B/P (MAP) Pulse Ox O2 Delivery O2 Flow Rate FiO2 06/29/19 11:49 102 175/119 06/29/19 10:35 98.3 18 97 Room Air 98.3 Lab Values Laboratory Tests Test 06/29/19 11:15 06/29/19 11:27 Urine Collection Type Void Urine Color Yellow Urine Clarity Hazy Urine pH 6.0 Urine Specific [place] >=1.030 Urine Protein 30 mg/dL (NEG-TRACE) Urine Glucose (UA) Negative mg/dL (NEG) Urine Ketones (Stick) Trace mg/dL (NEG) Urine Blood Negative (NEG) Urine Nitrite Negative (NEG) Urine Bilirubin Negative (NEG) Urine Urobilinogen Dipstick 0.2 mg/dL (0.2 mg/dL) Urine Leukocyte Esterase Negative (NEG) Urine RBC Occ /HPF (0-2) Urine WBC 1-4 /HPF (0-4) Urine Squamous Epithelial Cells Many /LPF Urine Bacteria Few /HPF (0-FEW) Urine Mucus Slight /LPF Urine Test Negative (NEG) Microbiology 06/29/19 Wet Prep - Final, Complete EKG EKG [] Radiology/Procedures Radiology/Procedures []PROCEDURE: PELVIS COMPLETE Examination: PELVIS COMPLETE History: Pelvic pain Comparison/Correlation: 02/15/2018 pelvic ultrasound Findings: Transabdominal pelvic ultrasound exam was performed. Uterus measures 14.2 cm x 10 cm x 8.8 cm. Endometrial thickness is 0.64 cm. Multiple fibroids are present involving the myometrium with the largest measuring up to 6.4 cm diameter. Right ovary measures approximately 3.1 cm x 2.1 cm x 2 cm left ovary measures 5 cm x 5.4 cm x 3.9 cm. There is flow present bilaterally involving the ovaries. No pelvic free fluid. Adnexal follicle measuring 4.1 ureter is present with septations and may represent a corpus cyst. Impression: Fibroid uterus. Mild interval increase in size of the largest fibroid by approximately 1.5 cm? This may alternatively be due to differences in measuring technique. Complex left adnexal follicle which may be physiologic. Interval follow-up in 16-18 weeks to assess resolution. Consider. Electronically signed by: Keshav Zhao MD (06/29/2019 11:49 AM) [facility] DICTATED and SIGNED BY: KESHAV ZHAO MD DATE: 06/29/19 1145 Course & Med Decision Making Course & Med Decision Making Pertinent Labs and Imaging studies reviewed. (See chart for details) This is a 43-year-old female patient presenting to the ED today complaining of pelvic pain and vaginal itching that began 2 days ago. Urine analysis is negative for UTI, wet prep is negative. Pelvic ultrasound noted for-fibroid uterus as well as a complex left adnexal follicle which may be physiological though interval follow-up recommended. Patient was provided instructions to follow-up with an BATCH FREEZER. Given prescription for lidocaine cream to apply on the exterior vagina. Pending STD testing the patient has no concerns for STDs. Her blood pressure was 177/117, patient has known history of hypertension, she does not remember the name of the medications she is on for high blood pressure and has not taken the medicine for what she believes is 2 days. She was given clonidine in the ED and encouraged to take her blood pressure medicines at home. She has a PCP to follow up with for hypertension. Her blood pressure will be rechecked prior to discharge. She has no headache or chest pain. Dragon Disclaimer Dragon Disclaimer This electronic medical record was generated, in whole or in part, using a voice recognition dictation system. Departure Departure Impression: Primary Impression: Vaginal itching Additional Impressions: Hypertension Fibroid, uterine Ovarian cyst Disposition: HOME, SELF-CARE Condition: STABLE Referrals: PARISH VELEZ MD (PCP) RACHAEL RUSH MD follow up in one week Patient Instructions: Hypertension, Ovarian Cyst, Uterine Fibroid, [id number] Additional Instructions: You were evaluated in the emergency room and noted to have fibroids as well as cyst on your left ovary. Please contact the provided BATCH FREEZER or your own BATCH FREEZER and follow-up. Please use the prescribed cream as needed on exterior vagina for comfort. Scripts Prednisone (PREDNISONE) 50 Mg Tablet 1 TAB PO DAILY, #5 TAB Prov: DEVAN DUNCAN APRN 06/29/19 Lidocaine/Prilocaine (LIDOCAINE-PRILOCAINE CREAM) 30 Gm Cream..g. 1 PAUL TP Q4HRS PRN for ITCHING, #30 GM 1 Refill apply to exterior vaginal area as needed Prov: DEVAN DUNCAN APRN 06/29/19 Problem Qualifiers Additional Impressions: Hypertension Hypertension type: unspecified Qualified Codes: I10 - Essential (primary) hypertension Fibroid, uterine Uterine leiomyoma location: unspecified location Qualified Codes: D25.9 - Leiomyoma of uterus, unspecified Ovarian cyst Laterality: left Qualified Codes: N83.202 - Unspecified ovarian cyst, left side DEVAN DUNCAN APRN Jun 29, 2019 12:17
[2019-06-29] MEDS ORDERED: LIDO30CR TP (12:22)
[2019-06-29] MEDS ORDERED: PRED50TA PO (12:34)
[2019-06-30 20:08] LABS: GC PROBE Negative (Negative)
== END 2019-06-29 12:49 | disposition home or self-care (01) ==
LOC: ER 10:19
DX: N76.89 Other specified inflammation of vagina and vulva (principal); D25.9 Leiomyoma of uterus, unspecified; N83.202 Unspecified ovarian cyst, left side; I10 Essential (primary) hypertension; Z98.890 Other specified postprocedural states; Z88.0 Allergy status to penicillin
CPT/HCPCS: 76856; 81001; 81025; 87491; 87591; 99285; Q0111; 36415

== ENCOUNTER → 2020-08-17 | Outpatient (CLI) | payer OTHER ==
[~2020-08-17] MED LIST changes: -ACYC800T PO; +ACYC800T88 PO; +AMLO-187 PO; -CETI10TA22 PO; +CETI10TA74 PO; +LIDO30CR2 TP; +LISI40TA6 PO
[2020-08-17 12:57] LABS: BILIRUBIN,URINE NEGATIVE (NEG); CLARITY,URINE CLEAR; COLOR,URINE YELLOW; NITRITE,URINE NEGATIVE (NEG); PROTEIN,URINE NEGATIVE (NEG-TRACE)
[2020-08-17 13:06] LABS: BASO % 1 % (0-3); EOS # 0.2 x10^3/uL (0.0-0.7); EOS % 4 % (0-3); HEMATOCRIT 31.8 % (36.0-47.0); HEMOGLOBIN 10.3 g/dL (12.0-15.5); LYMPH # 0.9 x10^3/uL (1.0-4.8); LYMPH % 18 % (24-48); MEAN CORPUSCULAR HEMOGLOBIN 26 pg (25-35); MEAN CORPUSCULAR HGB CONC 33 g/dL (31-37); MEAN CORPUSCULAR VOLUME 79 fL (79-100); MONO # 0.5 x10^3/uL (0.0-1.1); MONO % 10 % (0-9); NEUT # 3.3 x10^3/uL (1.8-7.7); NEUT % 67 % (31-73); PLATELET COUNT 310 x10^3/uL (140-400); RED BLOOD COUNT 4.04 x10^6/uL (3.50-5.40); RED CELL DISTRIBUTION WIDTH 17.5 % (11.5-14.5)
[2020-08-17 13:15] LABS: BACTERIA,URINE 0 /HPF (0-FEW); RBC,URINE 0 /HPF (0-2); TRICHOMONAS,URINE PRESENT
[2020-08-17 13:22] LABS: ALBUMIN 3.2 g/dL (3.4-5.0); ALBUMIN/GLOBULIN RATIO 0.9 (1.0-1.7); CALCIUM 8.6 mg/dL (8.5-10.1); GFR 73.6; TOTAL BILIRUBIN 0.3 mg/dL (0.2-1.0); TOTAL PROTEIN 6.9 g/dL (6.4-8.2)
--- NOTE | 2020-08-17 13:37 | EKG ---
[facility] [address] [place] [address] Test Date: 2020-08-17 Test Time: 13:33:02 Pat Name: MARCIA SCHOFIELD Department: Room: Gender: F Store Sales Manager: LAVERN Darling : 1975 Requested By: KASHMIR WRIGHT Order Number: [id number] Reading MD: Breezy Milton MD Measurements Intervals [place] Rate: 75 P: 55 OK: 132 QRS: 29 QRSD: 74 T: 45 QT: 378 QTc: 425 Interpretive Statements SINUS RHYTHM Electronically Signed On 08-20-2020 14:35:57 TELEVISION REPORTER by Breezy Milton MD
--- NOTE | 2020-08-17 16:34 | RAD ---
EXAM: CHEST 2 VIEWS. HISTORY: Preoperative risk factors, smoking history. COMPARISON: None. FINDINGS: Frontal and lateral views of the chest are obtained. A triangular opacity in the right cardiophrenic angle most likely reflects an epicardial fat pad. The re are no confluent infiltrates. There is no pneumothorax or pleural effusion. The heart is not enlar ged. IMPRESSION: 1. No confluent infiltrates. Electronically signed by: Tanya Westfall MD (08/17/2020 4:31 PM) [id number]
== END ==
LOC: SURGPAT 12:15
PROVIDERS: ATTEND Obstetrics & Gynecology
DX: Z01.812 Encounter for preprocedural laboratory examination (principal); Z20.822 Contact with and (suspected) exposure to COVID-19; I10 Essential (primary) hypertension
CPT/HCPCS: 71046; 80053; 81001; 85025; 87086; 93005; U0003

== ENCOUNTER 2020-08-22 06:08 | Inpatient (IN) | payer OTHER ==
[2020-08-22] VITALS (11 sets, daily range): BP systolic 93–126; BP diastolic 53–75
[~2020-08-22] VITALS: Ht 157.5 cm; Wt 82.6 kg
[~2020-08-22 06:08] MED LIST changes: +HYDROmorphone 2 MG/ML VIAL IVP PRN; +IV RINGERS,LACTATED 1000ML 1,000 ML IV SCH; +MORPHINE SULFATE 2 MG/ML VIAL. IVP PRN; +PROCHLORPERAZINE 10 MG/2 ML VIAL. IVP PRN; +fentaNYL PF VIAL 100 MCG/2 ML VIAL IVP PRN
[2020-08-22] MEDS ORDERED: DEXAMETHASONE SOD PHOS 4 MG/ML VIAL ONE (07:00)
[2020-08-22] MEDS ORDERED: LIDOCAINE 2% PF 5 ML VIAL. ONE (07:00)
[2020-08-22] MEDS ORDERED: PROPOFOL 10 MG/ML (20ML) VIAL. IV ONE (07:00)
[2020-08-22] MEDS ORDERED: ONDANSETRON PF 4 MG/2 ML VIAL. ONE (07:00)
[2020-08-22] MEDS ORDERED: ceFAZolin SODIUM IV Push 1 GM VIAL. IVP ONE ×2 (07:01→11:37)
[2020-08-22] MEDS ORDERED: ROCURONIUM 100 MG/10 ML VIAL. ONE (07:01)
[2020-08-22] MEDS ORDERED: SUCCINYLCHOLINE 200 MG/10 ML VIAL. ONE (07:02)
[2020-08-22] MEDS ORDERED: MIDAZOLAM HCL/PF 2 MG/2 ML VIAL. ONE (07:03)
[2020-08-22] MEDS ORDERED: fentaNYL PF VIAL 250 MCG/5 ML VIAL ONE (07:04)
[2020-08-22] MEDS ORDERED: BUPIVACAINE-EPI 0.25% 30 ML VIAL KIT. ONE ×2 (07:09→11:31)
[2020-08-22] MEDS ORDERED: ESTROGENS, CONJ VAGINAL CREAM 30GM TUBE. ONE (07:10)
[2020-08-22] MEDS ORDERED: METHYLENE BLUE 0.5% 10ml AMPULE. ONE (07:10)
[2020-08-22] MEDS ORDERED: INDIGOTINDISULFONATE SODIUM 40 MG/5 ML AMPUL. ONE (07:10)
[2020-08-22] MEDS ORDERED: FAMOTIDINE 20 MG/2 ML VIAL ONE (08:08)
[2020-08-22] MEDS ORDERED: KETAMINE HCL IN NACL, ISO-OSM 50 MG/5 ML SYRINGE ONE (08:57)
[2020-08-22] MEDS ORDERED: ALBUMIN HUMAN 5% 500 ML IV ONE (09:26)
[2020-08-22] MEDS ORDERED: KETOROLAC 30 MG/ML VIAL. ONE (10:53)
[2020-08-22] MEDS ORDERED: NEOSTIGMINE METHYLSULFATE 5 MG/5 ML SYRINGE. ONE (10:53)
[2020-08-22] MEDS ORDERED: SEVOFLURANE > 120 MINUTES. IH ONE (11:32)
[2020-08-22] MEDS ORDERED: HYDROmorphone 2 MG/ML VIAL ONE (11:32)
[2020-08-22] MEDS ORDERED: LACTULOSE 20 GM/30 ML SOLUTION. PO PRN (12:00)
[2020-08-22] MEDS ORDERED: diphenhydrAMINE HCL 25 MG CAPSULE PO PRN (12:00)
[2020-08-22] MEDS ORDERED: 0.9 % SODIUM CHLORIDE 10 ML DISP.SYRIN. IV PRN (12:00)
[2020-08-22] MEDS ORDERED: NALOXONE 0.4 MG/ML VIAL. IV PRN (12:00)
[2020-08-22] MEDS ORDERED: CALCIUM CARBONATE 500 MG TAB.CHEW PO PRN (12:00)
[2020-08-22] MEDS ORDERED: ONDANSETRON PF 4 MG/2 ML VIAL. IV PRN (12:00)
[2020-08-22] MEDS ORDERED: diphenhydrAMINE 50 MG/ML VIAL IV PRN (12:00)
[2020-08-22] MEDS ORDERED: ZOLPIDEM 5 MG TABLET. PO PRN (12:00)
[2020-08-22] MEDS ORDERED: MAG HYDROX/ALUMINUM HYD/SIMETH 30 ML ORAL.SUSP PO PRN (12:00)
[2020-08-22] MEDS ORDERED: PROCHLORPERAZINE 10 MG/2 ML VIAL. ONE (12:18)
--- NOTE | 2020-08-22 12:23 | PDOC ---
BRIEF OPERATIVE NOTE Date: Aug 22, 2020 Pre-Op Diagnosis Anemia, menorrhagia, enlarged fibroid uterus Post-Op Diagnosis same Procedure Performed diagnostic scope then BELINDA/bilateral salpingectomy Surgeon Dr. Fan Supervisor Records Change JUAN JOSE Person Anesthesiologist Dr. Cullen Anesthesia Type: General Blood Loss 750cc IV Fluid 2400cc crystlloid, 500cc albumin Urine Output 150cc clear and concentrated via rae Specimens Obtained cervix, uterus with fibroids, bilateral tubes Findings enlarged multi lobulated fibroid uterus, normal bilateral tubes and ovaries, mild adhesions to posterior cervix,normal appendix Complications none Operative Note [id number] KASHMIR FAN MD Aug 22, 2020 12:23
[2020-08-22 12:34] LABS: HEMOGLOBIN 9.2 g/dL (12.0-15.5); RED BLOOD COUNT 3.63 x10^6/uL (3.50-5.40); RED CELL DISTRIBUTION WIDTH 17.6 % (11.5-14.5); WHITE BLOOD COUNT 12.5 x10^3/uL (4.0-11.0)
--- NOTE | 2020-08-22 13:15 | NUR ---
Pt transferred to room 333 per bed from PACU S/P lap turned to open hysterectomy. Pt assessed, frequent VSs started and call light within reach. Sister at bedside.
--- NOTE | 2020-08-22 14:01 | OP ---
DATE OF SURGERY: 08/22/2020 PREOPERATIVE DIAGNOSES: Anemia, menorrhagia, enlarged fibroid uterus. POSTOPERATIVE DIAGNOSES: Anemia, menorrhagia, enlarged fibroid uterus. PROCEDURE: First a diagnostic laparoscopy. Initially, we were able to perform a bilateral salpingectomy, but the uterus was just too large to safely separate from the sidewalls to get even between the uteroovarian pedicle and definitely could not see anteriorly the bladder safely, so rather than struggling laparoscopically, it was decided to convert to an open total abdominal hysterectomy, so she was converted, so it was a BELINDA, bilateral salpingectomy with mild adhesiolysis. SURGEON: Kashmir Wright MD USED CAR RENOVATOR: JUAN JOSE De Jesus ANESTHESIOLOGIST: Memo Cullen MD ANESTHESIA: General. ESTIMATED BLOOD LOSS: 750 mL. URINE OUTPUT: 150 mL, clear and concentrated via the Solorzano. FLUIDS: 2400 mL of crystalloid and 500 mL of albumin. SPECIMENS: Cervix, uterus with fibroid tumors, but normal bilateral tubes. FINDINGS: An enlarged multilobulated fibroid uterus, normal bilateral tubes and ovaries. Mild adhesions of the descending colon to the posterior uterus and a normal appearing appendix. COMPLICATIONS: None. DESCRIPTION OF PROCEDURE: This patient was taken to the operating room where general anesthesia was placed. The patient was placed in dorsal lithotomy position with arms tucked. Patient was prepped and draped in the normal sterile fashion and a Solorzano catheter had been inserted under sterile technique. Upon my arrival, a timeout was performed. Once everyone agreed on the patient, the site, the procedure, the antibiotics, the procedure was initiated. Initially, a bivalve speculum was placed in the patient's vagina. A single-tooth tenaculum was used to grasp the anterior lip of the cervix. A 10 mL of 0.25% Marcaine was used to circumferentially inject around the cervix for both hemodissection and hemostatic purposes later. Once this was done, the Valtchev uterine manipulator was placed through the endocervical os, locked on the single tooth tenaculum and the bivalve speculum was then removed. Top gloves were discarded and changed. Attention was then turned to the abdomen where a small left upper quadrant incision was made in the mid underlying the rib cage down from the breast bone in the midclavicular area, but in the top of the abdominal cavity, a Jessi was used to dissect through the subcuticular layer to the fascia. The 5 mm Visiport was used to directly enter the abdominal cavity. Opening patient pressure was 2 mmHg. Carbon dioxide gas was used to then appropriately insufflate the abdominal cavity to maintain a pressure of 15 mmHg. The patient was placed in Trendelenburg position and overhead lights were dimmed. At this point, initially I was hoping to get around it, so I did place right and left lower quadrant ports after transilluminating the abdominal wall, finding an area clear of any vasculature, making a small incision and placing them in under direct visualization, 4-5 mL of air was placed in the trocar cuff. The right one went over an existing scar to save her any other incisions. The left one we just did, but the right one over an existing scar. The camera was then moved to look at the left upper quadrant port and it was in a good location as well with nothing around it, so it was also insufflated with the 4-5 mL of air. At this point, the bowel was grossly normal. The right upper quadrant was okay. Initially, the uterus, I could move it up just to see the tubes and ovaries okay, so I was able to do a bilateral salpingectomy with the LigaSure, cauterizing and cutting. However, when I needed to get into the uteroovarian pedicle or even think about getting the rounds, that was very short and attenuated as it was wide, I could not even get around to see the anterior uterus and when I slid under posteriorly with the scope to look, it was clear, but there were some of the descending colon like I was not sure if it was stuck a little too high up on that cervix and the posterior cul-de-sac and there just was not any room to manipulate and get the rounds and safely see the ureters and get the bladder flap, so it was decided at this point to convert to an open. So at this point, the trocars were left in place. The legs were put down and she was just redraped with a drape over the legs and we converted to an open total abdominal. I did use her existing scar from her tummy tuck and did a transverse Pfannenstiel skin incision approximately 2 cm above the pubic bone, it was a smiley face thicker incision from her prior surgery, but I used it, so I used the scalpel to make the incision. The Bovie cautery was used in the subcuticular layer to keep hemostasis. The fascia was scored in the midline and extended sharply and bluntly bilaterally with the curved Moctezuma scissors. Thaddeus clamps x 2 were placed on the superior fascial edge and the fascia was dissected from the rectus muscles beneath sharply and bluntly with the Bovie cautery. This was done inferiorly as well using the curved Moctezuma scissors, dissecting down to the pubic bone. Once this was done, the rectus muscles were in the midline and the peritoneum was digitally and bluntly entered and stretched. The O'Jamie-O'Arriola retractor was placed in making sure it was clear into the rectus muscles bilaterally extending it and then using 3 moist laps with slight Trendelenburg to gently pack away her bowel and placed the upper blade. The lower blade was placed initially. Later, it was taken out, so we could manipulate better, but initially the bladder blade was placed as well. Curved Peans were placed on the cornua of the uterus. The salpingectomy had been done. So at this point, 0 [address] was used to place stitches in the round ligament, starting on the right side. Two stitches were placed, one was tagged, one was cut and cauterizing between with the Bovie cautery, bisecting the round ligament, opening it up anteriorly going down to start to create the bladder flap and posterior going down and opening that posterior leaf up, making sure the ureter was low and below where we were, which it was. So at this point, crossing the uteroovarian pedicle, the ovaries were right on the uterus, but I was able to create an opening with my finger after that had been opened up posteriorly and a curved Guerrero was placed around the uteroovarian pedicle, keeping the ovary per patient request, but taking the tube. It was doubly clamped with curved Heaneys. The Pean was moved down for backbleeding and it was cut and then it was suture stick tied x 2; first kind of a Trimble tree before and after and then an interrupted stitch. This was done exactly the same on the left side, first getting the round ligament in 2 spots, bisecting it with the Bovie cautery for hemostasis, opening up that anterior leaf, taking it down to start the bladder flap the posterior leaf and going down and opening it up, finding the ureter low in the pelvis and then getting the uteroovarian pedicle, again it was high and almost touching the uterus as well, but creating that window placing curved Heaneys twice around it, again saving that ovary as well the left side and removing the Pean down for backbleeding and then cutting it and suture ligating it x 2 exactly the same with 0 Vicryl. Once this was done, the bladder flap was taken across sharply with the Selmans and the cautery and a sponge stick was used to push down the bladder flap anteriorly. Once the bladder flap was down, curved Heaneys x 2 were placed on the left side to secure the uterine vessels and a straight Thaddeus was placed for backbleeding. It was cut with curved Moctezuma scissors and suture ligated x 2 with 0 Vicryl. This was done exactly the same on the left right going back and forth. Curved Heaneys x 2 on the uterines, straight Thaddeus for backbleeding, cutting with curved Moctezuma scissors and suture ligating x 2 with 0 Vicryl, securing the uterine vessels, staying inside that pedicle using straight Heaneys, now going down and hugging the cervix again making sure bladder was down anteriorly and posteriorly hugging the uterus, placing straight Heaneys x 2 and then using the knife to cut here and suture ligated x 2 again with 0 Vicryl, going 3-4 bites through the cardinal and broad ligaments, hugging the cervix down, all the while making sure the bladder was down anteriorly. Before going deep posteriorly, I did have to just below the lower uterine segment on the cervix, gently cut off some filmy the top of the adhesion of the descending colon to the posterior cervix and I used a moist lap to gently peel it off the posterior cervix and it came down very well. So once we did that and it was low enough, I was able to put curved Heaneys on the uterosacral posteriorly on the right side, it is where I got in and getting in posteriorly and that cervix finally came up. So I tagged that one and then I used the Jose's to go around posteriorly under direct visualization, amputating the cervix and uterus and then anteriorly too again making sure the bladder was down and amputating the cervix and then switching sides, taking a bite on the left side as well for continuing the amputation. Straight Kochers were placed on the anterior and posterior lips of the cuff respectively on both sides, 2 on the front at the corner and 2 in the back at the corner and corner stitches were placed with 0 Vicryl on both sides and tagging those and then interrupted sutures were placed to close the cuff. Once the cuff was closed, I had tagged them all. Copious irrigation revealed hemostasis. They had minimal to no urine output at this point. They did have to give her extra fluids and 500 mL bolus of albumin and then she did start diuresing, but I did open up that posterior leaf and actually see the ureter on both sides and watch it peristalsed even after the uterus was out just to ensure that they were okay in that posterior leaf behind the ovary. This was done on both sides. Once this was done, the appendix was grossly normal. The cul-de-sac was dry. Copious irrigation revealed hemostasis. Aaron was placed over the cuff. The tags were clipped. The ovaries looked good. A Dylon was used to elevate those and look around and make sure they were okay. I placed originally a tag on the rounds, those were clipped as well. The O'Jamie-O'Arriola retractor was removed. The 3 moist laps, used to pack away the bowel initially placing that retractor, were removed and looked again and making sure looking at the pericolic gutters. They were both dry. We reexamining the cul-de-sac and it remained hemostatic with the Aaron on it. So at this point, the rectus muscles were examined; they were hemostatic as well as Bovie cautery had been used to meticulously on the way in to obtain hemostasis. So at this point, 0 Vicryl was used to close the fascia and then 3-0 Vicryl was used to close the Marko's subcuticular layer and beckie were used to close the skin. The three laparoscopic sites, the balloons were deflated, they were removed and nylon was used to close these three laparoscopic poke holes, the left upper quadrant and right and left lower quadrants and those had been injected with local at the beginning, the three laparoscopic incisions had. Patient was stable throughout the procedure. She was given Toradol in the recovery room. Again beckie were used on the big incision. Nylon on the 3 small ones. She was awakened from anesthesia and brought to recovery room in stable condition. KASHMIR WRIGHT MD DR: KOKO/yulisa JOB#: [id number] / [id number]
[2020-08-22] MEDS: MORPHINE SULFATE 2 MG/ML VIAL. IV PRN (16:39)
[2020-08-22] MEDS: HYDROcodone/APAP 5/325MG 1 TAB TABLET PO PRN ×2 (18:59→22:11)
[2020-08-23] MEDS: HYDROcodone/APAP 5/325MG 1 TAB TABLET PO PRN ×3 (02:10→23:06)
[2020-08-23] MEDS: SIMETHICONE 80 MG TAB.CHEW PO PRN ×2 (03:40→12:23)
[2020-08-23] MEDS: oxyCODONE/APAP 5/325 1 TAB TABLET PO PRN ×2 (06:06→12:22)
[2020-08-23 06:19] VITALS: BP 119/70
--- NOTE | 2020-08-23 07:45 | NUR ---
Sherice ambulated to the bathroom-felt the need to void. she was unable to void at this time.abdominal dressing c/d/i; lap sites clean dry and intact. used her personal inahaler; she was feeling tight. lungs clear anteriorly and posteriorly.
[2020-08-23] MEDS: MORPHINE SULFATE 2 MG/ML VIAL. IV PRN ×2 (08:23→17:14)
[2020-08-23 08:50] LABS: CALCIUM 7.6 mg/dL (8.5-10.1); CREATININE 0.8 mg/dL (0.6-1.0); GFR 95.2
--- NOTE | 2020-08-23 10:00 | NUR ---
ambulated to the bathroom; voided 125 cc yellow urine. sits on side of bed given juice and broth. states she feels better.
[2020-08-23 10:50] VITALS: BP_SYST 110; BP_SYST 122; BP_SYST 135; BP_DIAS 73; BP_DIAS 85; BP_DIAS 88
--- NOTE | 2020-08-23 11:30 | PDOC ---
SURGICAL PROGRESS NOTE DATE: 08/23/20 TIME: 11:24 Subjective Doing well with minimal complaints. Voiding without catheter. Steady on feet without dizziness. Scant VB. Tolerating liquids without n/v and ordered a solid lunch tray today too. Pain is well controlled. Vital Signs Vital Signs Date Time Temp Pulse Resp B/P (MAP) Pulse Ox O2 Delivery O2 Flow Rate FiO2 08/23/20 10:50 98.8 90 20 110/73 (85) 98 Room Air 98.8 122/85 (97) 135/88 (104) 08/22/20 14:45 2.0 I&O Intake and Output 08/23/20 07:00 Intake Total 4438 ml Output Total 2250 ml Balance 2188 ml Intake Oral 420 ml IV Total 3400 ml Other 618 ml Output Urine Total 1500 ml Estimated Blood Loss 750 ml PATIENT HAS A LAND: No General: Alert, Oriented X3, Cooperative, No acute distress HEENT: Atraumatic Heart: Regular rate Abdomen: Soft, No tenderness, Other (incision c/d/i) Extremities: No clubbing, No cyanosis, No edema, No tenderness/swelling Skin: No rashes, No breakdown Neuro: Normal speech Psych/Mental Status: Mental status NL, Mood NL Labs Laboratory Tests Test 08/22/20 06:30 08/22/20 12:21 08/23/20 08:10 Bedside Urine HCG, Qualitative Hcg negative (Negative) White Blood Count 12.5 x10^3/uL (4.0-11.0) Red Blood Count 3.63 x10^6/uL (3.50-5.40) Hemoglobin 9.2 g/dL (12.0-15.5) Hematocrit 29.0 % (36.0-47.0) 23.3 % (36.0-47.0) Mean Corpuscular Volume 80 fL (79-100) Mean Corpuscular Hemoglobin 25 pg (25-35) Mean Corpuscular Hemoglobin Concent 32 g/dL (31-37) Red Cell Distribution Width 17.6 % (11.5-14.5) Platelet Count 299 x10^3/uL (140-400) Sodium Level 135 mmol/L (136-145) Potassium Level 4.0 mmol/L (3.5-5.1) Chloride Level 103 mmol/L (98-107) Carbon Dioxide Level 25 mmol/L (21-32) Anion Gap 7 (6-14) Blood Urea Nitrogen 5 mg/dL (7-20) Creatinine 0.8 mg/dL (0.6-1.0) Estimated GFR (Cockcroft-Gault) 95.2 Glucose Level 108 mg/dL (70-99) Calcium Level 7.6 mg/dL (8.5-10.1) Laboratory Tests Test 08/22/20 12:21 08/23/20 08:10 White Blood Count 12.5 x10^3/uL (4.0-11.0) Red Blood Count 3.63 x10^6/uL (3.50-5.40) Hemoglobin 9.2 g/dL (12.0-15.5) Hematocrit 29.0 % (36.0-47.0) 23.3 % (36.0-47.0) Mean Corpuscular Volume 80 fL (79-100) Mean Corpuscular Hemoglobin 25 pg (25-35) Mean Corpuscular Hemoglobin Concent 32 g/dL (31-37) Red Cell Distribution Width 17.6 % (11.5-14.5) Platelet Count 299 x10^3/uL (140-400) Sodium Level 135 mmol/L (136-145) Potassium Level 4.0 mmol/L (3.5-5.1) Chloride Level 103 mmol/L (98-107) Carbon Dioxide Level 25 mmol/L (21-32) Anion Gap 7 (6-14) Blood Urea Nitrogen 5 mg/dL (7-20) Creatinine 0.8 mg/dL (0.6-1.0) Estimated GFR (Cockcroft-Gault) 95.2 Glucose Level 108 mg/dL (70-99) Calcium Level 7.6 mg/dL (8.5-10.1) I have reviewed the following labs, vitals, nursing Cardiovascular: No pertinent hx Pulmonary: No pertinent hx GI: No pertinent hx Heme/Onc: Anemia NOS Psych: No pertinent hx Assessment/Plan POD#1 s/p Diagnostic laparoscopy with conversion to BELINDA/bilateral salpingectomy Routine PO care anemia--expected normal drop after open abdominal surgery, chronic anemia but stable postop will initiate bid iron with meals wants binder and will get heating pad for abdomen Continue to monitor today and ADAT today also ambulate at least tid to qid later today also Justicifation of Admission Dx: Justifications for Admission: Justification of Admission Dx: Yes Comments: chronic anemia with enlarged fibroid uterus; s/p surgery KASHMIR WRIGHT MD Aug 23, 2020 11:30
--- NOTE | 2020-08-23 15:12 | NUR ---
SS following up with referral regarding social work consult. SS discussed with pt's RN. Possible need for home healthcare. SS and nurse navigator from [facility], ; fax [phone], met with pt to discuss needs. Pt requesting information on caregivers and home healthcare. Information for [facility] for caregiving services provided to pt. Pt agreeable to home healthcare at discharge with [facility]. Referral phoned and faxed to [facility]. SS will continue to follow for discharge planning.
[2020-08-23 15:20] VITALS: BP 126/81
--- NOTE | 2020-08-23 16:00 | NUR ---
nauseated after ambulating to the bathroom. she has dry heaves; medicated with zofran. family at bedside. visiting with family. iv infusing at 50 cc hr. she requests (padding) over incision. mesh panties caught on beckie. she is voiding at least 100-150cc yellow urine at a time.
--- NOTE | 2020-08-23 17:32 | NUR ---
medicated with morphine. states her pain is a "9" . denies nausea but no appetite. family depart. encouraged to eat at least sherbert. abdominal binder placed for comfort. have used heat pad at least 1x per request. denies passing gas but "can feel it"
[2020-08-23] MEDS ORDERED: ACETAMINOPHEN 500 MG TABLET PO PRN (19:15)
[2020-08-23 20:00] VITALS: BP 118/75
[2020-08-23 23:00] VITALS: BP 138/97
[2020-08-23] MEDS: MAGNESIUM HYDROXIDE 2,400 MG/30 ML ORAL.SUSP. PO PRN (23:05)
[2020-08-24] MEDS: HYDROcodone/APAP 5/325MG 1 TAB TABLET PO PRN ×4 (03:52→16:10)
[2020-08-24 03:54] VITALS: BP 135/92
[2020-08-24 07:00] VITALS: BP 155/94
[2020-08-24] MEDS: MAGNESIUM HYDROXIDE 2,400 MG/30 ML ORAL.SUSP. PO PRN (08:09)
--- NOTE | 2020-08-24 08:20 | NUR ---
Pt. complaints of headache and pain at a level 7-8 MD notified, pt takes personal blood pressure medication amlodipine 10mg and Atenolol 50mg for high blood pressure, per MD Dr. Fan this is ok. Dr. Fan discusses with pt. that high blood pressure can cause headaches. pt. verbalizes understanding. Dr. Fan at bedside discussing with pt. discharge instructions, pt. engages with MD in discussion. Subject of home health discussed with MD and Pt., decision to not pursue this agreed upon by healthcare provider and pt. Pt. agreeable to POC and states she would like to take a nap and plans for a shower later.
--- NOTE | 2020-08-24 08:55 | PDOC ---
SURGICAL PROGRESS NOTE DATE: 08/24/20 TIME: 08:47 Subjective Doing well. BP after surgery creeping up, usually takes amlodipine and gets headaches without it so some headache this am. No n/v, tolerating full diet. Scant VB, voiding well without catheter, ambulating halls and steady on her feet. Vital Signs Vital Signs Date Time Temp Pulse Resp B/P (MAP) Pulse Ox O2 Delivery O2 Flow Rate FiO2 08/24/20 07:56 Room Air 08/24/20 07:48 16 96 08/24/20 07:00 97.3 94 155/94 (114) 97.3 08/23/20 18:54 2.0 I&O Intake and Output 08/24/20 07:00 Intake Total 300 ml Output Total 2700 ml Balance -2400 ml Intake Oral 300 ml Output Urine Total 2700 ml PATIENT HAS A LAND: No General: Alert, Oriented X3, Cooperative, No acute distress HEENT: Atraumatic Heart: Regular rate Abdomen: Normal bowel sounds, Soft, Other (appropriate tenderness, incision c/d /i) Extremities: No clubbing, No cyanosis, No edema Skin: No rashes, No breakdown Neuro: Normal speech Psych/Mental Status: Mental status NL, Mood NL Labs Laboratory Tests Test 08/22/20 12:21 08/23/20 08:10 White Blood Count 12.5 x10^3/uL (4.0-11.0) Red Blood Count 3.63 x10^6/uL (3.50-5.40) Hemoglobin 9.2 g/dL (12.0-15.5) Hematocrit 29.0 % (36.0-47.0) 23.3 % (36.0-47.0) Mean Corpuscular Volume 80 fL (79-100) Mean Corpuscular Hemoglobin 25 pg (25-35) Mean Corpuscular Hemoglobin Concent 32 g/dL (31-37) Red Cell Distribution Width 17.6 % (11.5-14.5) Platelet Count 299 x10^3/uL (140-400) Sodium Level 135 mmol/L (136-145) Potassium Level 4.0 mmol/L (3.5-5.1) Chloride Level 103 mmol/L (98-107) Carbon Dioxide Level 25 mmol/L (21-32) Anion Gap 7 (6-14) Blood Urea Nitrogen 5 mg/dL (7-20) Creatinine 0.8 mg/dL (0.6-1.0) Estimated GFR (Cockcroft-Gault) 95.2 Glucose Level 108 mg/dL (70-99) Calcium Level 7.6 mg/dL (8.5-10.1) I have reviewed the following labs, vitals, nursing Cardiovascular: HTN Pulmonary: No pertinent hx GI: No pertinent hx Heme/Onc: Anemia NOS Psych: No pertinent hx Problem List POD#2 s/p diagnostic laparoscopy with BELINDA/bilateral salpingectomy chronic anemia with mild drop after surgery pt is stable and will start iron bid with meals at home HTN slowly started creeping back up last night and this am, will restart her home med now and continue at home Page written per pt request NO driving while on narcotic meds and at least one week keep one week follow up with me as scheduled call or return sooner for any other questions or concerns not limited to but including pain unrelieved with pain meds, increased or unexplained vb, or T>100.4 Assessment/Plan POD#2 s/p diagnostic laparoscopy with BELINDA/bilateral salpingectomy chronic anemia with mild drop after surgery pt is stable and will start iron bid with meals at home HTN slowly started creeping back up last night and this am, will restart her home med now and continue at home Page written per pt request NO driving while on narcotic meds and at least one week keep one week follow up with me as scheduled call or return sooner for any other questions or concerns not limited to but including pain unrelieved with pain meds, increased or unexplained vb, or T>100.4 Justicifation of Admission Dx: Justifications for Admission: Justification of Admission Dx: Yes KASHMIR WRIGHT MD Aug 24, 2020 08:55
--- NOTE | 2020-08-24 08:59 | PDOC3 ---
Discharge Summary Visit Information Date of Admission: Aug 22, 2020 Date of Discharge: Aug 24, 2020 Final Diagnosis Chronic anemia, menorrhagia, enlarged fibroid uterus Brief Hospital Course Allergies Allergies Coded Allergies Type Severity Reaction Last Updated Verified Penicillins Adverse Reaction Mild Nausea and Vomiting 08/22/20 Yes Vital Signs Vital Signs Date Time Temp Pulse Resp B/P (MAP) Pulse Ox O2 Delivery O2 Flow Rate FiO2 08/24/20 07:56 Room Air 08/24/20 07:48 16 96 08/24/20 07:00 97.3 94 155/94 (114) 97.3 08/23/20 18:54 2.0 Lab Results Laboratory Tests Test 08/22/20 12:21 08/23/20 08:10 White Blood Count 12.5 x10^3/uL (4.0-11.0) Red Blood Count 3.63 x10^6/uL (3.50-5.40) Hemoglobin 9.2 g/dL (12.0-15.5) Hematocrit 29.0 % (36.0-47.0) 23.3 % (36.0-47.0) Mean Corpuscular Volume 80 fL (79-100) Mean Corpuscular Hemoglobin 25 pg (25-35) Mean Corpuscular Hemoglobin Concent 32 g/dL (31-37) Red Cell Distribution Width 17.6 % (11.5-14.5) Platelet Count 299 x10^3/uL (140-400) Sodium Level 135 mmol/L (136-145) Potassium Level 4.0 mmol/L (3.5-5.1) Chloride Level 103 mmol/L (98-107) Carbon Dioxide Level 25 mmol/L (21-32) Anion Gap 7 (6-14) Blood Urea Nitrogen 5 mg/dL (7-20) Creatinine 0.8 mg/dL (0.6-1.0) Estimated GFR (Cockcroft-Gault) 95.2 Glucose Level 108 mg/dL (70-99) Calcium Level 7.6 mg/dL (8.5-10.1) Brief Hospital Course Ms. Alfaro is a 44 old female who presented with enlarged fibroid uterus and ch ronic anemia desiring definitive therapy. She underwent diagnostic scope to determine if could be completed laparoscopically vs. open. When the size of the uterus was appreciated it was decided to open and perform BELINDA/bilateral salpingectomy (pt wanted to keep her ovaries). She underwent the procedure without complications. She has had anemia, but was anemic prior to the proce dure, so she experienced an appropriate drop in her hct after a major open abdominal surgery for vascular fibroids. She has had an unremarkable postoperative course with AFVSS. HTN pre existed the surgery also and she is restarting home meds this am as BP is creeping back up. She is tolerating regular diet, ambulating well, voiding without catheter. Assessment Assessment POD#2 s/p diagnostic laparoscopy with BELINDA/bilateral salpingectomy chronic anemia with mild drop after surgery pt is stable and will start iron bid with meals at home HTN slowly started creeping back up last night and this am, will restart her home med now and continue at home [place] written per pt request NO driving while on narcotic meds and at least one week keep one week follow up with me as scheduled call or return sooner for any other questions or concerns not limited to but in cluding pain unrelieved with pain meds, increased or unexplained vb, or T>100.4 Discharge Information Condition at Discharge: Stable Follow Up: Weeks Disposition/Orders: D/C to Home Scheduled Amlodipine Besylate (Amlodipine Besylate) 10 Mg Tablet, 10 MG PO DAILY for bp, (Reported) Entered as Reported by: JACQUELIN PUCKETT on 08/17/20 1229 Last Taken: Unknown Dose on 08/22/20641 Last Action: Reviewed on 08/22/20641 by DARRIUS VILLEGAS Lisinopril (Lisinopril) 40 Mg Tablet, 40 MG PO DAILY for bp, (Reported) Entered as Reported by: JACQUELIN PUCKETT on 08/17/20 1230 Last Taken: Unknown Dose on 08/22/20641 Last Action: Reviewed on 08/22/20641 by DARRIUS VILLEGAS Scheduled PRN Acetaminophen (Tylenol) 325 Mg Tablet, 650 MG PO PRN Q8HRS PRN for PAIN, #20 Prescribed by: TAMERA ALVARADO on 10/15/16 2300 Last Taken: Unknown Dose on 08/21/20 Last Action: Reviewed on 08/22/20641 by DARRIUS VILLEGAS Hydrocodone/Apap 5-325 ([place] 5-325 Tablet) 1 Each Tablet, 1 TAB PO PRN Q6HRS PRN for PAIN, #8 Ref 0 Prescribed by: SONAL CROCKER APRN on 05/11/182003 Last Taken: Unknown Dose on 08/22/20641 Last Action: Reviewed on 08/22/20641 by DARRIUS VILLEGAS Tramadol Hcl (Ultram) 50 Mg Tablet, 50 MG PO Q6H PRN for PAIN, #20 Prescribed by: JAYLEN VELASCO on 02/05/162138 Last Taken: Unknown Dose on 08/21/20 Last Action: Reviewed on 08/22/20641 by DARRIUS VILLEGAS Patient Instructions Patient Instructions POD#2 s/p diagnostic laparoscopy with BELINDA/bilateral salpingectomy chronic anemia with mild drop after surgery pt is stable and will start iron bid with meals at home HTN slowly started creeping back up last night and this am, will restart her home med now and continue at home [place] written per pt request NO driving while on narcotic meds and at least one week keep one week follow up with me as scheduled call or return sooner for any other questions or concerns not limited to but including pain unrelieved with pain meds, increased or unexplained vb, or T>100.4 Justicifation of Admission Dx: Justifications for Admission: Justification of Admission Dx: Yes KASHMIR WRIGHT MD Aug 24, 2020 08:59
[2020-08-24 12:01] VITALS: BP 133/94
--- NOTE | 2020-08-24 14:56 | NUR ---
SW following, chart reviewed. Pt and physician have decided not to proceed with Home Health upon discharge. Pt left with contact information for [facility] for home health manager yesterday. Toney King RN aware of plan. No further SW needs.
--- NOTE | 2020-08-24 15:08 | PATHOLOGY ---
[facility] Accession Number: [id number] . 01 Material submitted: . uterus - UTERUS, CERVIX, BILATERAL TUBES. Modifiers: bilateral . 01 Clinical history: . PELVIC PAIN POSSIBLE BSO . 02 Diagnosis: Uterus, attached left fallopian tube, and detached right fallopian tube and segment of myometrial tissue, hysterectomy with bilateral salpingectomy: - Leiomyomas, uterine corpus, submucosal and intramural, multiple, the largest measuring 6.2 cm in greatest dimension (uterine weight 463 grams). - Mild chronic cervicitis with focal squamous metaplasia. - Nabothian cyst, cervix. - Proliferative endometrium. - Serosal adhesions. - Congestion of bilateral fallopian tubes. (JPM:[facility] 08/24/2020) [facility] 08/24/2020 1406 Local . 02 Comment: There is no atypia or evidence of malignancy. (JP:[facility] 08/24/2020) . 02 Electronically signed: . Gabriel Montero MD, Pathologist NPI- [id number] . 01 Gross description: . The specimen is received in formalin, labeled "Sherice Alfaro, uterus, cervix, bilateral tubes". Received is a 463 g, 16.5 x 8.3 x 8.2 cm uterus with attached cervix, attached left fallopian tube weighing 3 g, and detached right fallopian tube weighing 2 g. The uterine serosa is pink-durbin in appearance with overlying adhesions. The 1.0 cm cervical os is surrounded by pink-durbin to red-brown ectocervical mucosa. The uterus is oriented using the peritoneal reflection and the anterior paracervical margin is inked black. The specimen is opened laterally to reveal a pale durbin endocervical canal measuring 4.2 cm in length. The endometrial cavity is tear-drop shaped measuring 7.3 cm in length by 3.5 cm in width. The endometrium is pale durbin to pink-durbin, glistening in appearance and measures 0.1 cm in thickness. Serial sectioning reveals a durbin-pink, trabecular myometrium measuring up to 4.6 cm in thickness displaying multiple intramural and submucosal fibroids ranging in size from 1.2 to 6.2 cm. Sectioning through the fibroids reveals no gross evidence of degeneration or necrosis. . The left fimbriated fallopian tube measures 7.0 cm in length by 0.6 cm in diameter. The serosal surface is inked black. Sectioning reveals a pinpoint to patent lumen. . The right fimbriated fallopian tube measures 4.2 cm in length by 0.5 cm in diameter. Sectioning reveals a patent lumen. . Also received within the specimen container is an additional 23 g fibroid measuring 3.7 x 3.5 x 3.2 cm in greatest dimensions. Sectioning reveals white-durbin, whorled cut surfaces with no gross evidence of necrosis or degeneration. The specimen is submitted representatively as follows: . A1 12:00 cervix A2 6:00 cervix A3 anterior endomyometrium A4 posterior endomyometrium A5-A6 outside sales account representative sections of fibroids A7 outside sales account representative sections from each fallopian tube A8 outside sales account representative sections of separately submitted fibroid. ([facility]; 08/23/2020) QAC/QAC 08/24/2020 1213 Local . 02 Pathologist provided ICD-10: D25.0, D25.1, N72, N88.8 . 02 CPT . 014157 Specimen Comment: A courtesy copy of this report has been sent to [phone] Specimen Comment: Report sent to Performed at: 01 [facility] [address] [id number] MD Gaurang Newberry MD Phone: [phone] Performed at: 02 [facility] [address] [place], [place] [id number] MD Gabriel Montero MD Phone: [phone]
[2020-08-24 16:12] VITALS: BP 142/97
== END 2020-08-24 19:22 | disposition home or self-care (01) | DRG 743 ==
LOC: SURG 06:08 → 3 NORTH 12:03
PROVIDERS: ADMIT Obstetrics & Gynecology; ATTEND Obstetrics & Gynecology
PROC: 0DNM0ZZ Release Descending Colon, Open Approach (ICD-10-PCS; 2020-08-22)
PROC: 0UJD4ZZ Inspection of Uterus and Cervix, Percutaneous Endoscopic Approach (ICD-10-PCS; 2020-08-22)
PROC: 0UT90ZZ Resection of Uterus, Open Approach (ICD-10-PCS; principal; 2020-08-22 07:30)
PROC: 0UB70ZZ Excision of Bilateral Fallopian Tubes, Open Approach (ICD-10-PCS; 2020-08-22 07:30)
DX: D25.9 Leiomyoma of uterus, unspecified (principal); N92.0 Excessive and frequent menstruation with regular cycle; D64.9 Anemia, unspecified; I10 Essential (primary) hypertension; Z88.0 Allergy status to penicillin; Z53.31 Laparoscopic surgical procedure converted to open procedure
CPT/HCPCS: 36415; 80048; 81025; 85014; 85027; 86850; 86900; 86901; 88307; J0330; J0690; J0780; J1100; J1170; J1885; J2250; J2270; J2405; J2704; J2710; J3010; J3480; J3490; J7120; P9045; Q9968; A4461; G0378